=== PATIENT | male | born 1965 | race Caucasian/White ===

== ENCOUNTER 2017-04-01 16:39 | Emergency (ER) | payer OTHER ==
[2017-04-01 17:18] LABS: ALT (SGPT) 12 U/L (8-55); AST (SGOT) 21 U/L (5-34); Albumin 3.8 g/dL (3.5-5.0); Alkaline Phosphatase 83 U/L (40-150); Anion Gap 12 mmol/L (10-20); BUN (Urea Nitrogen) 7 mg/dL (8.9-20.6); Bilirubin, Total 0.5 mg/dL (0.2-1.2); Calc. Creatinine Clearance 0 mL/min (70-130); Calcium 8.9 mg/dL (7.8-10.44); Carbon Dioxide 24 mmol/L (22-29); Chloride 91 mmol/L (98-107); Estimated GFR-MDRD Greater than 90; Globulin 3.4 g/dL (2.4-3.5); Glucose 93 mg/dL (70-105); Potassium 3.9 mmol/L (3.5-5.1); Protein, Total 7.2 g/dL (6.0-8.3); Sodium 123 mmol/L (136-145)
[2017-04-01 17:19] LABS: #Basophils 0.1 thou/uL (0.0-0.2); #Eosinphils 0.3 thou/uL (0.0-0.7); #Monocytes 0.7 thou/uL (0.11-0.59); #Neutrophils 3.1 thou/uL (1.40-6.50); %Eosinophils 5.5 % (0.0-10.0); %Lymphocytes 31.3 % (21.0-51.0); %Monocytes 11.3 % (0.0-10.0); %Neutrophils 49.9 % (42.0-75.0); Elliptocytes SLIGHT = 2-5 cells (100X) (0-1/hpf); Hemoglobin 8.8 g/dL (14.0-18.0); Hypochromia MODERATE=16-30 cells (100X) (0-5/hpf); MDiff Complete? YES; Macrocytosis SLIGHT = 6-15 cells (100X) (0-5/hpf); Mean Corpuscular Hemoglobin 23.7 pg (27.0-31.0); Mean Corpuscular Volume 76.3 fl (80.0-94.0); Mean Platelet Volume 5.2 fL (7.4-10.4); Microcytosis MODERATE=15-30 cells (100X) (0-5/hpf); Platelet Count 567 thou/uL (130-400); RBC Distribution Width 19.8 % (11.5-14.5); Red Blood Cell (RBC) Count 3.71 mill/uL (4.70-6.10); White Blood Cell (WBC) Count 6.3 thou/uL (4.8-10.8)
[2017-04-01] MEDS ORDERED: Sulfameth/Trimethoprim DS 800-160mg TAB ONE (18:17)
--- NOTE | 2017-04-01 22:49 | CT ---
CT OF THE LEFT ANKLE 04/01/[address] of the left ankle and proximal foot was performed. The study was done after injection of I V contrast. Axial slices were done followed by coronal and sagittal reconstructions. There were no p rior films available for comparison. There has been extensive prior surgery round the ankle with fusion of the talocalcaneal joint by a s crew. The orthopedic hardware causes artifacts on the images which degrades sensitivity. While I do not see any area of overt bony destruction, this study is unable to rule in or rule out osteomyeliti s. IMPRESSION: Chronic changes but no acute finding. POS: HOME
== END 2017-04-01 18:36 | disposition home or self-care (01) ==
LOC: BURERS 16:39
DX: L03.115 Cellulitis of right lower limb (principal); F17.220 Nicotine dependence, chewing tobacco, uncomplicated
CPT/HCPCS: 80053; 82274; 82728; 85025

== ENCOUNTER 2017-04-06 14:15 | Emergency (ER) | payer OTHER ==
[2017-04-06 15:01] LABS: INR-International Normal Ratio 1.2; PTT 38.8 SEC (22.9-36.1); Prothrombin Time 15.7 SEC (12.0-14.7)
[2017-04-06 15:02] LABS: Base Excess -10.4 mEq/L (-2 - +2); pH (venous) 7.242 (7.35-7.45)
[2017-04-06 15:03] LABS: Hemoglobin (Hb) 10.9 g/dL (13.1-17.2)
[2017-04-06 15:09] LABS: ALT (SGPT) 16 U/L (8-55); AST (SGOT) 42 U/L (5-34); Albumin 3.8 g/dL (3.5-5.0); Alkaline Phosphatase 91 U/L (40-150); Anion Gap 19 mmol/L (10-20); BUN (Urea Nitrogen) 20 mg/dL (8.9-20.6); Bilirubin, Total 0.3 mg/dL (0.2-1.2); CK (CPK) 47 U/L (30-200); Calc. Creatinine Clearance 0 mL/min (70-130); Calcium 8.7 mg/dL (7.8-10.44); Carbon Dioxide 15 mmol/L (22-29); Chloride 91 mmol/L (98-107); Estimated GFR-MDRD 32; Globulin 3.5 g/dL (2.4-3.5); Glucose 102 mg/dL (70-105); Lipase 8 U/L (8-78); Potassium 4.3 mmol/L (3.5-5.1); Protein, Total 7.3 g/dL (6.0-8.3); Sodium 121 mmol/L (136-145)
[2017-04-06 15:12] LABS: #Eosinphils 0.5 thou/uL (0.0-0.7); #Lymphocytes 0.4 thou/uL (1.20-3.40); #Monocytes 0.2 thou/uL (0.11-0.59); #Neutrophils 3.5 thou/uL (1.40-6.50); %Basophils 0.2 % (0.0-1.0); %Eosinophils 10.8 % (0.0-10.0); %Neutrophils 76.1 % (42.0-75.0); Acanthocytes SLIGHT = 1-5 cells (100X) (None Seen); Elliptocytes SLIGHT = 2-5 cells (100X) (0-1/hpf); Hemoglobin 10.2 g/dL (14.0-18.0); Hypochromia MODERATE=16-30 cells (100X) (0-5/hpf); MDiff Complete? YES; Mean Corpuscular HGB CONC 31.9 g/dL (32.0-36.0); Mean Platelet Volume 5.4 fL (7.4-10.4); Microcytosis SLIGHT = 6-15 cells (100X) (0-5/hpf); Platelet Count 437 thou/uL (130-400); RBC Distribution Width 19.9 % (11.5-14.5); Red Blood Cell (RBC) Count 4.25 mill/uL (4.70-6.10); White Blood Cell (WBC) Count 4.6 thou/uL (4.8-10.8)
[2017-04-06] MEDS ORDERED: Piperacillin/Tazobactam 3.375 GM VIAL ONE (15:13)
[2017-04-06] MEDS ORDERED: Acetaminophen 325 MG TAB ONE (15:13)
[2017-04-06] MEDS ORDERED: Sodium Chloride 0.9% 100 ML ONE (15:13)
[2017-04-06] MEDS ORDERED: Clindamycin/D5W 900 mg/50 ml Premix Bag ONE (15:20)
--- NOTE | 2017-04-06 21:48 | RAD ---
LEFT FOOT THREE VIEWS: Date: 04-06-17 Comparison: 04-01-17 CT of the area. That was largely difficult to interpret due to the artifact from the patient's orthopedic hardware. FINDINGS: There has been an ORIF of an old calcaneal fracture. No acute bony injury was seen. While there is l ucency around the screw that goes between the calcaneus and talus, there is no finding that is class ic for osteomyelitis at the moment. Nevertheless, other studies would be needed to rule out osteo as this would be very insensitive. No fracture was seen. IMPRESSION: No definite acute findings, but other studies such as an MRI or three-phase bone scanning might be n ecessary to rule out bony infection. POS: HOME
== END 2017-04-06 15:40 | disposition short-term general hospital (02) ==
LOC: BURERS 14:15
DX: A41.9 Sepsis, unspecified organism (principal); L03.116 Cellulitis of left lower limb; F17.220 Nicotine dependence, chewing tobacco, uncomplicated
CPT/HCPCS: 80053; 82550; 82805; 83605; 83690; 85025; 85610; 85652; 85730; 87040; 96361; 96365; 96374; J2543; J3370; J3490; J7050

== ENCOUNTER 2018-11-05 08:04 | Emergency (ER) | payer SELFPAY ==
[2018-11-05 08:25] LABS: #Basophils 0.1 thou/uL (0.0-0.2); #Lymphocytes 1.1 thou/uL (1.20-3.40); #Monocytes 0.3 thou/uL (0.11-0.59); #Neutrophils 7.9 thou/uL (1.40-6.50); %Basophils 0.6 % (0.0-1.0); %Eosinophils 0.2 % (0.0-10.0); %Lymphocytes 11.7 % (21.0-51.0); %Monocytes 2.9 % (0.0-10.0); %Neutrophils 84.5 % (42.0-75.0); Hemoglobin 11.8 g/dL (14.0-18.0); Mean Corpuscular HGB CONC 33.3 g/dL (32.0-36.0); Mean Corpuscular Hemoglobin 30.3 pg (27.0-31.0); Platelet Count 280 thou/uL (130-400); RBC Distribution Width 12.8 % (11.5-14.5); Red Blood Cell (RBC) Count 3.89 mill/uL (4.70-6.10); White Blood Cell (WBC) Count 9.3 thou/uL (4.8-10.8)
[2018-11-05 08:31] LABS: INR-International Normal Ratio 1.1; Prothrombin Time 14.7 SEC (12.0-14.7)
[2018-11-05 08:32] LABS: PTT 31.6 SEC (22.9-36.1)
[2018-11-05 08:43] LABS: ALT (SGPT) 61 U/L (8-55); AST (SGOT) 217 U/L (5-34); Acetaminophen Less than 6.0 mcg/mL (10.0-30.0); Albumin 3.7 g/dL (3.5-5.0); Alcohol Less than 10 mg/dL (Less than 10); Alkaline Phosphatase 62 U/L (40-150); Anion Gap 15 mmol/L (10-20); BUN (Urea Nitrogen) 16 mg/dL (8.4-25.7); Bilirubin, Total 1.2 mg/dL (0.2-1.2); Calc. Creatinine Clearance 0 mL/min (70-130); Calcium 10.4 mg/dL (7.8-10.44); Carbon Dioxide 21 mmol/L (22-29); Chloride 94 mmol/L (98-107); Estimated GFR-MDRD 56; Globulin 2.8 g/dL (2.4-3.5); Glucose 187 mg/dL (70-105); Potassium 4.3 mmol/L (3.5-5.1); Protein, Total 6.5 g/dL (6.0-8.3); Salicylate Less than 8.0 mg/dL (15.0-30.0); Sodium 126 mmol/L (136-145)
[2018-11-05] MEDS ORDERED: Ketamine 50 MG/ML (10ML VIAL) ONE (09:05)
--- NOTE | 2018-11-05 09:26 | CT ---
Spiral CT of the chest, abdomen , and pelvis was done after injection of IV contrast. CT THORAX Bilateral pneumothoraces are present, left larger than right. Bilateral pleural effusions are seen, right larger than left. Bilateral ribs fractures are noted with corresponding soft tissue air in the upper trunk posteriorly. There are fractures of at least right ribs 1-5 and 7-9, and also left ribs 1-5 and 7-8. There is an undisplaced fracture of the right scapular body. The sternoclavicular kimberly ints appear intact. There is fracture of the T10 vertebral body with compression and one fracture line running verticall y through it front to back. Fractures of each lamina are present. There is little displacement. The mediastinum appears normal. There is no hematoma, vascular compromise that I can see, or other a cute change here. CT ABDOMEN/PELVIS The major abdominal organs all appear intact with no sign of laceration or hematoma. The liver, spl een, pancreas, gallbladder, adrenal glands, kidneys and abdominal aorta show no acute changes. The i s no distension of bowel, free air, or free fluid. The pelvis shows no hematoma, mass, or inflammator y change. The bony pelvis and hips appear intact. There is a compression fracture of the L1 vertebral body with no displacement. There is a compressio n fracture of the L2 vertebral body with about a 1 mm displacement of one fragment posteriorly that b hermann even effaces the thecal sac. There is also a fracture through the right articular pillar of L2 that extends into the base of the right transverse process. IMPRESSION: 1. Bilateral pneumothoraces, left larger than right. 2. Bilateral pleural effusions, right more than left. 3. Bilateral rib fracture involving most of ribs 1-8 on each side. 4. Fracture of the right scapular body, undisplaced. 5. Major abdominal organs intact. No free air or fluid. 6. Pelvis and hips intact. No pelvic hematomas. 7. Fracture of T10 vertebral body with bilateral laminar fractures. Little displacement. 8. Compression fracture of L1 9. Compression fracture of L2 with extension into the right articular pillar. FINDINGS DISCUSSED WITH DR SORENSEN @ 0904 ON 11/05/2018. POS: HOME
--- NOTE | 2018-11-05 09:51 | CT ---
CT OF THE CERVICAL SPINE WITHOUT CONTRAST: DATE: 11/05/2018. FINDINGS: Spiral CT of the cervical spine was performed following trauma. Axial slices were acquired, then cor onal and sagittal reconstructions were done. No fracture, dislocation, or acute bony change was seen. The C1 to dens distance is normal and the s oft tissues are normal in thickness. Incidental findings seen on this scan were bilateral apical pne umothoraces, left greater than right, and fractures of at least 1st 2 ribs on each side. Soft tissue air is present in the soft tissues around them. See CT of the thorax report for roach details. Regarding the cervical spine, no acute traumatic changes were seen. Findings by level follow: C1-C2: No acute findings. C2-C3: No acute finding. C3-C4: No acute findings. C4-C5: Mild bilateral foraminal narrowing due to osteophytes. C5-C6: Mild bilateral foraminal narrowing due to osteophytes. C6-C7: Moderate right foraminal narrowing due to osteophytes. C7-T1: No acute vertebral findings. T1-T2: No major fracture seen. There may be a small cortical break in the superior articular pillar of T2, but this is difficult to be certain about and no through and through fracture was seen. IMPRESSION: 1. No evidence of significant cervical spine injury. 2. Fractures of the upper ribs bilaterally and bilateral pneumothoraces. See CT chest dictation to follow. 3. Degenerative changes as noted. Findings discussed with Dr. Mann at 0837 on 11/05/2018. CODE CR POS: HOME
--- NOTE | 2018-11-05 09:55 | CT ---
CT OF THE BRAIN WITHOUT CONTRAST: DATE: 11/05/2018. FINDINGS: A noncontrast CT shows normal size ventricles with no shift. No intracranial bleeding or extraaxial hematoma was seen. There is no sign of mass, edema, or stroke. The calvarium appears intact. The v isible paranasal sinuses are clear, as are the mastoid air cells. IMPRESSION: No acute intracranial findings. Findings discussed with Dr. Mann at 0837 on 11/05/2018. CODE CR POS: HOME
--- NOTE | 2018-11-05 10:21 | RAD ---
PORTABLE CHEST: DATE: 11/05/2018. FINDINGS: An AP portable study at 0942 shows interval placement of bilateral chest tubes. The lungs are mostly reexpanded. There is a small apical pneumothorax on the right and perhaps a very tiny amount of air on the left. Some rib fractures are visible but are better seen on the patient's CT scan. The lay ent's right scapula fracture is faintly visible. Additional fractures seen on this study that were not mentioned on a CT scan are relatively nondispla fito fractures at the distal end of each clavicle. The heart size is normal and the mediastinum shows no widening or shift. IMPRESSION: 1. Status post chest tube placement with minimal pneumothoraces present. 2. Relatively undisplaced fractures of each distal clavicle, a finding not noted on the recent CT sc an. 3. Multiple rib fractures and right scapular fracture, all noted on prior scan. POS: HOME
== END 2018-11-05 09:51 | disposition home or self-care (01) ==
LOC: BURERS 08:04
DX: S22.43XA Multiple fractures of ribs, bilateral, initial encounter for closed fracture (principal); S42.114A Nondisplaced fracture of body of scapula, right shoulder, initial encounter for closed fracture; S01.111A Laceration without foreign body of right eyelid and periocular area, initial encounter; S40.012A Contusion of left shoulder, initial encounter; G89.11 Acute pain due to trauma; W20.8XXA Other cause of strike by thrown, projected or falling object, initial encounter
CPT/HCPCS: 32551; 36415; 70450; 71045; 71260; 72125; 74177; 80053; 80307; 83605; 84484; 85025; 85610; 85730; 86850; 86900; 86901; 86922; 94760; 96360; G0390